=== PATIENT | male | born 1995 | race Caucasian/White ===

== ENCOUNTER 2022-10-18 10:53 | Emergency (ER) | payer SELFPAY ==
[2022-10-18] VITALS (23 sets, daily range): BP systolic 114–145; BP diastolic 77–99; PULSE 59–90; RESP 6–25; TEMP 36.6; O2SAT 91–100
--- NOTE | ~2022-10-18 | CT_ITS ---
EXAMINATION: CT abdomen pelvis w con INDICATION: Left upper quadrant pain TECHNIQUE: Computed tomographic images of the abdomen and pelvis were obtained after the administrati on of 100 cc of Omnipaque 350 intravenous contrast. The dose-length product (DLP) was 207.04 mGy-cm. Automated exposure control and iterative reconstruction technique were employed. COMPARISON: None available FINDINGS: The lung bases are clear. The heart size is normal. There is a small sliding hiatal hernia. The liver, spleen, pancreas, gallbladder, and adrenal glands are normal. The kidneys are unremarkabl e. No pathologically enlarged abdominal or pelvic lymph nodes are identified. There is no free intrap eritoneal gas or evidence of bowel obstruction. IMPRESSION: 1. No CT correlate for the patient's symptoms. Reviewed, dictated and finalized at location L.
[2022-10-18 11:34] LABS: Basophils Percent Auto 0.4 % (0.2-1.2); Eosinophils Absolute Auto 0.1 K/mm3 (0-0.3); Eosinophils Percent Auto 1.3 % (0-4.4); Hematocrit 43.6 % (42.0-52.0); Hemoglobin 14.8 g/dL (14.0-18.0); Immature Granulocyte Absolute 0.01 K/mm3 (0.00-0.031); Immature Granulocyte Percent A 0.2 % (0-0.5); Lymphocytes Absolute Auto 1.62 K/mm3 (0.9-3.2); Lymphocytes Percent Auto 29.8 % (18.3-44.2); Mean Corpuscular HGB Conc 33.9 g/dl (32-36); Mean Corpuscular Hemoglobin 30.6 pg (26-34); Mean Corpuscular Volume 90.1 fl (80-100); Mean Platelet Volume 10.7 fl (7.4-10.4); Monocytes Absolute Auto 0.4 K/mm3 (0.1-0.6); Monocytes Percent Auto 7.2 % (2.6-8.5); Neutrophils Absolute Auto 3.3 K/mm3 (1.3-6.7); Neutrophils Percent Auto 61.1 % (45.5-73.1); Platelet Count Result 242 k/mm3 (150-375); Red Blood Count 4.84 M/mm3 (4.6-6.20); Red Cell Distribution Width 11.9 % (11.5-14.5); White Blood Count 5.4 K/mm3 (4.5-10.0)
[2022-10-18 11:42] LABS: Alanine Aminotransferase 20 U/L (6-50); Albumin Level 5.4 g/dL (3.5-5.1); Alkaline Phosphatase 57 U/L (38-126); Anion Gap 9 mmol/L (8-16); Aspartate Amino Transferase 27 U/L (17-59); Bilirubin,Total 0.8 mg/dL (0.2-1.3); Blood Urea Nitrogen 15 mg/dL (9-20); Calcium 9.5 mg/dL (8.4-10.2); Carbon Dioxide 27 mmol/L (22-30); Chloride 102 mmol/L (98-107); Estimated CRCL calculation 103 ml/min; Estimated Glomerular Filt Rate > 60; Glucose 116 mg/dL (65-110); Potassium 4.1 mmol/L (3.4-5.0); Sodium 138 mmol/L (137-145)
[2022-10-18 11:47] LABS: INR 1.1; Partial Thromboplastin Time 27.9 SECONDS (22.3-36.8); Prothrombin Time 13.9 Seconds (11.1-14.7)
--- NOTE | 2022-10-18 15:44 | ED.GIBLEED ---
HPI - GI Bleed General Chief complaint: GI Bleed Stated complaint: blood in stool Time Seen by Provider: 10/18/22 14:47 History of Present Illness HPI Narrative: This is a 27-year-old male with reported history of hepatitis C, presents emergency department complaining of blood in stool for the past 2 days. He states this is associated with 3/10 cramping left upper quadrant pain. He states his stools began as black tarry followed by bright red blood. This is associated with mild lightheadedness but denies loss of consciousness. He denies bleeding from any other source. The patient provides pictures, that demonstrated bright red blood in the toilet. Related Data Allergies Allergy/AdvReac Type Severity Reaction Status Date / Time bupropion [From Wellbutrin] Allergy Hives Verified 10/18/22 16:06 Review of Systems Review of Systems: CONSTITUTIONAL: Denies fever, chills, or sweats. EYES: Denies visual changes, redness, or discharge. ENT: Denies rhinorrhea, congestion, sore throat, or otalgia. CARDIOVASCULAR: Denies chest pain, palpitations, or edema. RESPIRATORY: Denies cough or dyspnea. GASTROINTESTINAL: Left upper quadrant abdominal pain denies nausea, vomiting, or diarrhea. GENITOURINARY: Denies dysuria or hematuria. SKIN: Denies rash or itching. MUSCULOSKELETAL: Denies back pain, joint pain, or myalgia. NEUROLOGIC: Intermittent lightheadedness denies headache, numbness or weakness. PSYCHIATRIC: Denies anxiety or depression. [facility] Past Medical History Medical History (Updated 10/19/22 @ 00:01 by Background Daemon) Hepatitis C Exam Narrative: GENERAL: Well-developed, thin, and in no acute distress. HEAD: Normocephalic, atraumatic. EYES: PERRLA and EOMI. ENT: Nares clear, no rhinorrhea or epistaxis. Mucous membranes moist. Oropharynx without tonsillar hypertrophy exudate or other lesions. CHEST: Clear to auscultation. No respiratory distress. No wheezes rales or rhonchi HEART: Regular rate and rhythm. No murmur heard. Normal peripheral pulses. ABDOMEN: Soft, nontender, nondistended, normal active bowel sounds. RECTAL: No active bleeding noted. No obvious hemorrhoids. There is a small amount of blood-tinged stool after digital rectal exam. No palpated mass or internal hemorrhoids. EXTREMITIES: Normal range of motion. No edema. SKIN: Warm, dry, no rash. NEURO: No focal deficits. Alert and oriented x3. PSYCH: Normal mood and affect. Course Course Emergency Course: 17:20 - Hemoglobin 14. Platelets 242. INR 1.1. Chemistries demonstrate mild hyperglycemia of 116. CT unremarkable. GI is not currently available, in the presence of ongoing bleeding and history of hepatitis, will transfer for GI and observation. Paged [facility] and [facility] to discuss transfer. 18:49 - Discussed patient with [facility] GI physician, Dr. Alan and hospitalist, Dr. Brito, both of whom accept transfer. 19:30 - The patient is now requesting to go by private vehicle, stating he needs to take care of housing and pet arrangements. I discussed risks of injury and decompensation without immediate intervention. The patient voiced understanding and still wishes to go by private vehicle. 20:37 - The patient is asking to be discharged to take care of his pet. He further states that he misunderstood earlier conversation and does not have a vehicle to travel to [facility]. Will discharge AMA. Discussed return and emergency precautions including recurrent bleeding, respiratory distress and ACS. The patient voiced understanding and will attempt to return. Vital Signs Vital signs: Vital Signs Temperature 98 F 10/18/22 11:14 Pulse Rate 83 10/18/22 11:14 Respiratory Rate 18 10/18/22 11:14 Blood Pressure 145/99 H 10/18/22 11:14 Pulse Oximetry 98 10/18/22 11:14 Oxygen Delivery Room Air 10/18/22 11:14 Temperature 98 F 10/18/22 11:14 Pulse Rate 65 10/18/22 19:01 Respiratory Rate 16 10/18/22 19:01 Blood Pressure 133/80 0
[2022-10-18] MEDS: PANTOPRAZOLE SODIUM IV 40 MG VIAL 80 MG IV PUSH (16:07)
--- NOTE | 2022-10-18 20:08 | PC.NURSE ---
Pt stated social issues for dog care while being transferred between facilities. Dr. Morocho at bedside to discuss situation and okay with pt transfer self by POV to [facility] in [facility].
--- NOTE | 2022-10-18 20:45 | PC.NURSE ---
Misunderstanding of POV with transfer to [facility]. Pt stated he does not have a car after dressing and going out to ED lobby. Pt thought hospital had car to transfer self to other hospital. Nurse clarified that we would provide ambulance ride but not vehicle to facility. Pt ambulatory out of ED and verbalized understanding of risks and benefits that this would be AMA. Pt verbalized understanding that if ss/ worsened pt will come back to be evaluated. Pt leaving to arrange care for dog that is at hotel at this time. Pt left ED at this time.
--- NOTE | 2022-10-18 20:55 | PC.NURSE ---
[facility] called at this time. Spoke with ENZO Reeves unit charge and [facility]s [facility] charge notified of AMA. ENZO Shields stated she would notify call center to make admitting physician aware.
== END 2022-10-18 20:50 | disposition left against medical advice (07) ==
PROVIDERS: Emergency Medicine; Emergency Provider Preventive Medicine Aerospace Medicine
DX: K92.2 Gastrointestinal hemorrhage, unspecified (principal)
CPT/HCPCS: 36415; 74177; 80053; 85025; 85610; 85730; 86850; 86900; 86901; 96374; 99284; C9113; Q9967